=== PATIENT | male | born 1985 | race Caucasian/White ===

== ENCOUNTER 2022-08-02 15:05 | Emergency (ER) | payer OTHER ==
[~2022-08-02] VITALS: Ht 177.8 cm; Wt 79.9 kg
[2022-08-02 17:40] LABS: BASO % 0.7 % (0.0-1.0); EOS # 0.1 10^3/uL (0.0-0.5); EOS % 1.1 % (0.0-3.0); HEMATOCRIT 41.3 % (42.0-52.0); HEMOGLOBIN 13.7 g/dl (13.5-17.5); LYMPH # 1.5 10^3/uL (1.5-5.0); LYMPH % 26.3 % (24.0-44.0); MEAN CORPUSCULAR HEMOGLOBIN 29.3 pg (27.0-33.0); MEAN CORPUSCULAR HGB CONC 33.2 g/dl (32.0-36.5); MEAN CORPUSCULAR VOLUME 88.2 fl (80.0-96.0); MONO # 0.6 10^3/uL (0.0-0.8); MONO % 10.2 % (2.0-8.0); NEUTROPHILS # 3.4 10^3/uL (1.5-8.5); NEUTROPHILS % 61.2 % (36.0-66.0); PLATELET COUNT, AUTOMATED 202 10^3/uL (150-450); RED BLOOD COUNT 4.68 10^6/uL (4.30-6.10); WHITE BLOOD COUNT 5.6 10^3/uL (4.0-10.0)
[2022-08-02 17:55] LABS: INR 0.91; PROTHROMBIN TIME 12.5 SECONDS (12.5-14.5)
[2022-08-02 18:07] LABS: LIPASE 33 U/L (12-53)
[2022-08-02 18:10] LABS: ALBUMIN 3.7 G/DL (3.2-5.2); ALKALINE PHOSPHATASE 42 U/L (46-116); ALT/SGPT 18 U/L (7.0-40); AST/SGOT 14 U/L (<34); BILIRUBIN,DIRECT 0.2 MG/DL (<0.4); BILIRUBIN,TOTAL 0.5 MG/DL (0.3-1.2); CK-MB VALUE MASS < 1.0 NG/ML (<3.6); TOTAL PROTEIN 6.4 G/DL (5.7-8.2)
[2022-08-02 18:13] LABS: FREE T4 1.01 NG/DL (0.89-1.76)
[2022-08-02 18:14] LABS: THYROID STIMULATING HORMONE 0.731 uIU/ML (0.55-4.78)
[2022-08-02 18:19] LABS: CPK CREATINE PHOSPHOKINASE 98 U/L (46-171); MB/CK RELATIVE INDEX 1.02 (< OR =4)
[2022-08-02 19:30] VITALS: BP 133/66
== END 2022-08-02 19:41 | disposition home or self-care (01) ==
LOC: M ED 15:05
DX: R00.2 Palpitations (principal); I49.3 Ventricular premature depolarization; I45.19 Other right bundle-branch block

== ENCOUNTER 2022-10-18 21:22 | Emergency (ER) | payer OTHER ==
[~2022-10-18] VITALS: Ht 177.8 cm; Wt 81.7 kg
[2022-10-18 21:22] VITALS: BP 147/72; TEMP 98.3; O2SAT 98
[2022-10-18] MEDS ORDERED: DERMABOND TOPICAL SKIN ADHESIVE TOP ONE (23:20)
== END 2022-10-19 00:15 | disposition home or self-care (01) ==
LOC: M ED 21:22
DX: S61.213A Laceration without foreign body of left middle finger without damage to nail, initial encounter (principal); Y92.814 Boat as the place of occurrence of the external cause